=== PATIENT | female | born 1975 | race Caucasian/White ===

== ENCOUNTER 2023-08-28 14:32 | Emergency (ER) | payer MEDICAID, OTHER ==
[~2023-08-28] VITALS: Ht 157.5 cm; Wt 60.6 kg
[2023-08-28 14:50] VITALS: BP 134/98; PULSE 95; RESP 16; O2SAT 100
== END 2023-08-28 15:13 | disposition left against medical advice (07) ==
LOC: ER 14:32
DX: H92.10 Otorrhea, unspecified ear (principal); Z53.21 Procedure and treatment not carried out due to patient leaving prior to being seen by health care provider